=== PATIENT | female | born 1955 | race Caucasian/White ===

== ENCOUNTER 2022-11-19 10:35 | Emergency (ER) | payer OTHER ==
[2022-11-19 10:56] VITALS: BP 127/57; PULSE 60; RESP 20; TEMP 98.2; BMI 28.3
[2022-11-19 13:19] LABS: BASO % 0.9 % (0-2.0); EOS % 1.9 % (0-4.5); HEMATOCRIT 36.9 % (32.4-45.2); HEMOGLOBIN 12.1 GM/dL (10.7-15.3); LYMPH % 38.1 % (8-40); MCH 29.9 pg (25.7-33.7); MCHC 32.8 g/dl (32.0-36.0); MEAN CELL VOLUME 91.1 fl (80-96); MONO % 15.5 % (3.8-10.2); NEUT % 43.6 % (42.8-82.8); PLATELET COUNT 215 10^3/uL (134-434); RBC 4.05 M/mm3 (3.60-5.2); RDW 13.9 % (11.6-15.6)
[2022-11-19 13:34] LABS: ALBUMIN 3.4 g/dl (3.4-5.0); BLOOD UREA NITROGEN 19.8 mg/dL (7-18); CALCIUM 9.4 mg/dL (8.5-10.1); MAGNESIUM 2.1 mg/dL (1.8-2.4)
[2022-11-19 13:37] LABS: CREATININE 0.6 mg/dL (0.55-1.3)
[2022-11-19 13:39] LABS: BILIRUBIN,TOTAL 0.3 mg/dL (0.2-1); TOT PROT 6.8 g/dl (6.4-8.2)
[2022-11-19] MEDS ORDERED: ACETAMINOPHEN 325 MG TABLET (FP) PO ONE (14:55)
[2022-11-19] MEDS ORDERED: ACETAMINOPHEN 325 MG TABLET (FP) ONE (15:27)
== END 2022-11-19 15:34 | disposition home or self-care (01) ==
LOC: JER 10:35
DX: R10.31 Right lower quadrant pain (principal); R00.1 Bradycardia, unspecified
CPT/HCPCS: 36415; 71046-TC-FY; 80053; 83690; 83735; 84484; 85025; 93005; 93010; 99285-25